=== PATIENT | male | born 1980 | race Caucasian/White ===

== ENCOUNTER 2024-10-01 11:40 | Outpatient (CLI) | payer OTHER, SELFPAY ==
--- NOTE | 2024-10-01 13:12 | P.ANES_ITS ---
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
--- NOTE | 2024-10-01 13:12 | W.ANESCHARGE ---
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
== END 2024-10-01 11:41 | disposition home or self-care (01) ==
LOC: OP CLINIC 11:44
PROVIDERS: PCP Family Medicine; Visit Provider Internal Medicine Gastroenterology
DX: Z12.11 Encounter for screening for malignant neoplasm of colon (principal); D12.0 Benign neoplasm of cecum; D12.4 Benign neoplasm of descending colon
CPT/HCPCS: 00811; 45380; 45385; 88305; J2704; J3490